=== PATIENT | female | born 1990 | race Two or more races ===

== ENCOUNTER 2024-08-10 05:07 | Inpatient (IN) | payer OTHER ==
[~2024-08-10] VITALS: Ht 165.1 cm; Wt 3.2 kg
[2024-08-10 05:25] VITALS: BP 123/75
[2024-08-10] MEDS ORDERED: VAZALORE81 MG (05:43)
[2024-08-10] MEDS ORDERED: VALTREX1000 MG (05:43)
[2024-08-10] MEDS ORDERED: PRENATAL TABLE1 EAC1 (05:43)
[2024-08-10] MEDS ORDERED: RINGERS SOLUTION,LACTATED 1,000 ML IV SCH (05:45)
[2024-08-10 06:26] LABS: PH,URINE 5.5 (5.0-8.0); URINE APPEARANCE Cloudy; URINE BILIRRUBIN Negative (NEGATIVE); URINE BLOOD Negative; URINE COLOR Yellow; URINE GLUCOSE Negative (NEGATIVE); URINE KETONE Trace (NEGATIVE); URINE LEUKOCYTE Negative; URINE NITRATE Negative; URINE PROTEIN Trace (NEGATIVE)
[2024-08-10 06:29] LABS: HEMATOCRIT 37.7 % (36.0-45.00); HEMOGLOBIN 13.1 g/dL (12.0-15.00); MEAN CELL VOLUME 86.8 fL (80.00-100.00); MEAN CORPUSCULAR HEMOGLOBIN 30.3 pg (27.00-32.0); MEAN CORPUSCULAR HGB CONC 34.9 g/dl (32.0-36.0); PLATELET COUNT 205 K/uL (150-450); RED BLOOD COUNT 4.34 M/uL (4.00-6.00); RED CELL DISTRIBUTION WIDTH 15.3 % (11.5-14.5); URINE BACTERIA 784.4 uL (0.0-1933); URINE EPITHELIAL CELLS 53.8 uL (0.0-38.8); URINE RBC 55.6 uL (0.0-20.8); URINE WBC 34.3 uL (0.0-23.2)
[2024-08-10 06:52] LABS: INR < 0.93; PARTIAL THROMBOPLASTIN TIME 28.2 SECONDS (22.0-34.0)
[2024-08-10 07:01] LABS: URINE CAST 1.17 uL (0.0-1.40)
[2024-08-10 07:02] LABS: URINE CRYSTALS MANY /HPF
[2024-08-10 07:10] LABS: ALBUMIN 2.7 gm/dL (3.4-5.0); BILIRUBIN TOTAL 0.46 mg/dL (0.3-1.2); CALCIUM 9.3 mg/dL (8.5-10.1); CREATININE SERUM 0.58 mg/dL (0.55-1.02); GFR 121.25; GLOBULINA 3.4 G/DL (2.4-3.5); POTASSIUM 4.08 mEq/L (3.5-5.1); TOTAL PROTEIN 6.1 gm/dL (6.4-8.2)
[2024-08-10 07:48] VITALS: BP 115/59
[2024-08-10] MEDS ORDERED: MISOPROSTOL 25 MCG/4 ML GEL.W.APPL ONE (08:39)
[2024-08-10] MEDS ORDERED: MISOPROSTOL 25 MCG/4 ML GEL.W.APPL VAG ONE ×3 (08:45→17:00)
[2024-08-10 11:26] VITALS: BP 120/63
[2024-08-10 15:32] VITALS: BP 121/54
[2024-08-10] MEDS ORDERED: CEFAZOLIN SODIUM 1,000 MG VIAL ONE (19:44)
[2024-08-10] MEDS ORDERED: OXYTOCIN 10 UNITS/ML VIAL ONE ×2 (19:51→20:21)
[2024-08-10] MEDS ORDERED: ERYTHROMYCIN BASE OPHT 1GM EACH TUBE OP ONE (19:51)
[2024-08-10] MEDS ORDERED: CEFAZOLIN SODIUM 1,000 MG VIAL IV ONE (20:15)
[2024-08-10] MEDS ORDERED: SUGAMMADEX SODIUM 200 MG/2 ML VIAL IV ONE (20:58)
[2024-08-10] MEDS ORDERED: MEPERIDINE HCL/PF 50 MG/ML VIAL IV SCH (21:00)
[2024-08-10] MEDS ORDERED: KETOROLAC TROMETHAMINE 60 MG VIAL IM ONE ×2 (21:00→23:37)
[2024-08-10] MEDS ORDERED: PROMETHAZINE HCL 25 MG/ML AMPUL IV SCH (21:00)
[2024-08-10] MEDS ORDERED: MORPHINE SULFATE 4 MG/ML VIAL IV ONE ×2 (21:30→22:15)
[2024-08-11 01:08] VITALS: BP 130/87
[2024-08-11 04:09] LABS: HEMATOCRIT 32.4 % (36.0-45.00); HEMOGLOBIN 11.1 g/dL (12.0-15.00); MEAN CELL VOLUME 87.4 fL (80.00-100.00); MEAN CORPUSCULAR HEMOGLOBIN 29.9 pg (27.00-32.0); MEAN CORPUSCULAR HGB CONC 34.3 g/dl (32.0-36.0); PLATELET COUNT 182 K/uL (150-450); RED CELL DISTRIBUTION WIDTH 14.9 % (11.5-14.5)
[2024-08-11 08:16] VITALS: BP 137/62
[2024-08-11] MEDS ORDERED: SIMETHICONE 125 MG CAPSULE PO SCH (09:00)
[2024-08-11] MEDS ORDERED: OxyCODONE HCL/APAP UD (PERCOCET) PO SCH (09:00)
[2024-08-11] MEDS ORDERED: DOCUSATE SODIUM 100MG CAP PO SCH (09:00)
[2024-08-11 13:48] VITALS: BP 134/82
[2024-08-11 16:04] VITALS: BP 122/81
[2024-08-11 20:00] VITALS: BP 144/98
[2024-08-11 21:06] VITALS: BP 140/80
[2024-08-12] VITALS: BP 130/79
[2024-08-12 07:59] VITALS: BP 138/88
[2024-08-12] MEDS ORDERED: IBUprofen 800 MG TABLET PO SCH (09:00)
[2024-08-12] MEDS ORDERED: ACETAMINOPHEN 500 MG GEL..CAP PO SCH (12:00)
[2024-08-12 13:18] VITALS: BP 131/88
[2024-08-12 16:16] VITALS: BP 126/82
[2024-08-13] VITALS: BP 122/80
[2024-08-13] MEDS ORDERED: COLACE100 MG PO (08:14)
[2024-08-13] MEDS ORDERED: IBU800 MG PO (08:14)
[2024-08-13] MEDS ORDERED: SIMETHICONE125 M1 PO (08:15)
[2024-08-13] MEDS ORDERED: HORIZANT300 MG PO (08:16)
[2024-08-13] MEDS ORDERED: ACETAMINOPHEN500 M2 PO (08:17)
[2024-08-13 08:31] VITALS: BP 136/92
== END 2024-08-13 13:33 | disposition home or self-care (01) | DRG 788 ==
LOC: OB/GYN 05:07 → LDR 05:07 → OB/GYN 09:13
PROVIDERS: ADMIT Specialist; ATTEND Specialist
PROC: 3E033VJ Introduction of Other Hormone into Peripheral Vein, Percutaneous Approach (ICD-10-PCS; 2024-08-10)
PROC: 3E0P7VZ Introduction of Hormone into Female Reproductive, Via Natural or Artificial Opening (ICD-10-PCS; 2024-08-10)
PROC: 4A1HXCZ Monitoring of Products of Conception, Cardiac Rate, External Approach (ICD-10-PCS; 2024-08-10)
PROC: 10D00Z1 Extraction of Products of Conception, Low, Open Approach (ICD-10-PCS; principal; 2024-08-10 21:30)
DX: O36.8330 Maternal care for abnormalities of the fetal heart rate or rhythm, third trimester, not applicable or unspecified (principal); O69.0XX0 Labor and delivery complicated by prolapse of cord, not applicable or unspecified; Z3A.40 40 weeks gestation of pregnancy; Z37.0 Single live birth